=== PATIENT | female | born 1965 | race Caucasian/White ===

== ENCOUNTER 2018-02-28 17:04 | Emergency (ER) | payer OTHER, SELFPAY ==
[2018-02-28 17:06] VITALS: BP 170/88; PULSE 74; RESP 16; TEMP 36.7; O2SAT 96; BMI 44.8
--- NOTE | 2018-02-28 17:29 | RAD_ITS ---
STUDY: X-RAY - RIGHT FOOT CLINICAL: Female, 52 years old. Pain TECHNIQUE: Three view(s) of the foot were obtained. COMPARISON: None. FINDINGS: Bones: There are no acute osseous abnormalities. There is a moderate spur off the inferior calcaneus. There is a small spur off the posterior calcaneus. There is mild deformity in the proximal fifth metatarsal. Joints: There are small spurs in the mid foot. Soft tissues: There is mild soft tissue swelling. Foreign body: None RAD/Foot min 3 Views IMPRESSION: No acute osseous abnormalities are seen in the right foot. There is mild deformity of the proximal fifth metatarsal, likely from an old fracture. There are mild degenerative changes in the midfoot. There is mild soft tissue swelling. Electronically Signed: Pily Colbert MD at 18:18 EDT Tel Direct: [phone], Service support ,
--- NOTE | 2018-02-28 19:00 | ED.VISSUMM ---
- ER Visit Summary Date of Service: 02/28/18 Chief Complaint: Atraumatic right foot pain History of Present Illness: The patient is a 52 F who presents with atraumatic right foot pain. She localizes over the lateral aspect of the right foot. She denies paresthesia, anesthesia buttocks. She has no symptoms of claudication. She was recently diagnosed with diabetes and is presently on insulin. She does have history hypertension. She denies fever, chills night sweats. She denies any prior history of foot pain. Walking increases the pain. Physical Examination: Vital signs are remarkable for an elevated blood pressure 170/88. She appears in no distress. BMI is 44.8. Examination of the right foot reveals no swelling, discoloration or deformity. DP and PT pulses are palpable. There is pain palpation in the proximity of the calcaneus. There is pain to palpation plantar surface of the midfoot. Forced dorsiflexion causes increased pain. No skin lesions are noted. There is no evidence infection i.e. erythema, warmth, induration, fluctuance or lymphangitis. Test Results: 3 view x-ray of the foot was obtained which reveals a calcaneal spur. X-ray also reveals mild degenerative changes. No fractures noted. Emergency Department Course and Treatment: To evaluate patient's atraumatic foot pain x-ray was obtained. Concern she has plantar fasciitis. 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 It may contain incorrect words, spelling, and punctuation that were not noted in review of the chart prior to signing ED Disposition - Plan for ED Patient: Disposition: Home or Assisted Living Chief Complaint: Lower Extremity Injury Instructions: ED Plantar Fasciitis Referrals: Miguel Griffith [Primary Care Provider] - Escobar Waller DPM [STAFF PHYSICIAN] - 2 Days
--- NOTE | 2018-02-28 19:03 | ED.DCSUM_ITS ---
- ER Visit Summary Date of Service: 02/28/18 Chief Complaint: Atraumatic right foot pain History of Present Illness: The patient is a 52 F who presents with atraumatic right foot pain. She localizes over the lateral aspect of the right foot. She denies paresthesia, anesthesia buttocks. She has no symptoms of claudication. She was recently diagnosed with diabetes and is presently on insulin. She does have history hypertension. She denies fever, chills night sweats. She denies any prior history of foot pain. Walking increases the pain. Physical Examination: Vital signs are remarkable for an elevated blood pressure 170/88. She appears in no distress. BMI is 44.8. Examination of the right foot reveals no swelling, discoloration or deformity. DP and PT pulses are palpable. There is pain palpation in the proximity of the calcaneus. There is pain to palpation plantar surface of the midfoot. Forced dorsiflexion causes increased pain. No skin lesions are noted. There is no evidence infection i.e. erythema, warmth, induration, fluctuance or lymphangitis. Test Results: 3 view x-ray of the foot was obtained which reveals a calcaneal spur. X-ray also reveals mild degenerative changes. No fractures noted. Emergency Department Course and Treatment: To evaluate patient's atraumatic foot pain x-ray was obtained. Concern she has plantar fasciitis. 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 It may contain incorrect words, spelling, and punctuation that were not noted in review of the chart prior to signing ED Disposition - Plan for ED Patient: Disposition: Home or Assisted Living Chief Complaint: Lower Extremity Injury Instructions: ED Plantar Fasciitis Referrals: Miguel Griffith [Primary Care Provider] - Escobar Waller DPM [STAFF PHYSICIAN] - 2 Days
--- NOTE | 2018-02-28 19:24 | ED.RN ---
DISCHARGE INSTRUCTIONS GIVEN TO AND REVIEWED WITH PATIENT, PATIENT DENIES QUESTIONS OR CONCERNS AND VOICES UNDERSTANDING OF DISCHARGE INSTRUCTIONS. PT AMBULATES OUT OF ROOM WITHOUT DIFFICULTY.
== END 2018-02-28 19:25 | disposition home or self-care (01) ==
PROVIDERS: Emergency Provider Emergency Medicine; Family Provider Family Medicine; PCP Family Medicine
DX: M72.2 Plantar fascial fibromatosis (principal); I10 Essential (primary) hypertension; E10.9 Type 1 diabetes mellitus without complications; F32.9 Major depressive disorder, single episode, unspecified; E66.9 Obesity, unspecified; Z68.41 Body mass index [BMI] 40.0-44.9, adult; Z79.4 Long term (current) use of insulin; Z79.82 Long term (current) use of aspirin; Z79.01 Long term (current) use of anticoagulants; Z79.899 Other long term (current) drug therapy
CPT/HCPCS: 73630; 99282

== ENCOUNTER 2018-04-13 15:48 | Emergency (ER) | payer OTHER, SELFPAY ==
[2018-04-13 15:49] VITALS: BP 149/77; PULSE 77; RESP 18; TEMP 36.6; O2SAT 99; BMI 44.3
--- NOTE | 2018-04-13 16:00 | RAD_ITS ---
STUDY: X-RAY - RIGHT ANKLE REASON FOR EXAM: Female, 52 years old. Pain and swelling. Patient states ankle popped. TECHNIQUE: 3 view(s) of the ankle. COMPARISON: Right foot, February 28, 2018. FINDINGS: Normal visualized distal tibia and fibula. Normal medial and lateral malleoli. Normal tibiotalar articulation and ankle mortise. Normal visualized talus. There is a stable plantar spur along the underside of the calcaneus. The visualized subtalar, talonavicular, calcaneocuboid and tarsal articulations are normal. The soft tissue structures are unremarkable. RAD/Ankle min 3 Views IMPRESSION: No acute fracture or dislocation. Electronically Signed: Chuck Kemp DO at 16:14 EDT Tel [phone], Service support ,
[2018-04-13] MEDS: Acetaminophen 500 MG Tablet 1000 MG PO (16:11)
--- NOTE | 2018-04-13 16:53 | ED.VISSUMM ---
- ER Visit Summary Date of Service: 04/13/18 Chief Complaint: Right ankle pain History of Present Illness: The patient is a [address] Griffith. She reports that she is walking uphill in her right ankle pop. Since that time she has had severe pain and is unable to walk. She reports that she has sharp pain is 10 out of 10 with walking 7 out of 10 at rest. States that she did not fall when this occurred. She denies any other injuries. She denies any paresthesias distally. Physical Examination: Vitals: Stable. Afebrile. General: Well-nourished and well-developed. Head: Normocephalic atraumatic. Neck: Supple, no lymphadenopathy. No JVD. Nontender. Cardiovascular: Regular rate and rhythm. No murmurs. Respiratory: No respiratory distress. Clear to auscultation bilaterally. Abdominal: Soft, nontender, nondistended, normal bowel sounds. No guarding, rebound, or peritoneal signs. Back: Nontender. Extremities: Moderate touch palpation soft tissue swelling over the lateral mild pain over the medial malleolus. No pain over the base the fifth metatarsal. No pain over the proximal fibula. She is neurovascular intact distal to this. Skin: Normal color, no rash. Neurologic: Alert and oriented ?3. Cranial nerves II through XII are intact. Normal strength and sensation. Psych: Normal affect. Test Results: X-ray is negative. Emergency Department Course and Treatment: Patient was treated with Tylenol. Treatment Plan: Patient be discharged crutches. Instructed use Tylenol for pain. Follow-up Dr. Waller in 1 week if not improving. Disposition: To home in improved and stable condition. Impression: 1. Right ankle sprain. This note was generated with [employer] dictation software. It may contain incorrect words, spelling, and punctuation that were not noted in review of the chart prior to signing ED Disposition - Plan for ED Patient: Disposition: Home or Assisted Living Chief Complaint: Lower Extremity Injury Instructions: ED Sprain Ankle W X Ray Referrals: Escobar Waller DPM [STAFF PHYSICIAN] - 1 Week if not improving
[2018-04-13 17:20] VITALS: RESP 18; O2SAT 99
== END 2018-04-13 17:21 | disposition home or self-care (01) ==
LOC: ED 16:24
PROVIDERS: Emergency Provider Emergency Medicine; Family Provider Family Medicine; PCP Family Medicine
DX: S93.401A Sprain of unspecified ligament of right ankle, initial encounter (principal); X50.1XXA Overexertion from prolonged static or awkward postures, initial encounter; Y93.01 Activity, walking, marching and hiking; Y92.9 Unspecified place or not applicable; I25.10 Atherosclerotic heart disease of native coronary artery without angina pectoris; I10 Essential (primary) hypertension; E11.9 Type 2 diabetes mellitus without complications; Z79.4 Long term (current) use of insulin; Z79.82 Long term (current) use of aspirin; Z79.01 Long term (current) use of anticoagulants; Z79.899 Other long term (current) drug therapy
CPT/HCPCS: 73610; 99284